=== PATIENT | female | born 1950 ===

== ENCOUNTER 2021-08-25 17:04 | Emergency (ER) | payer SELFPAY ==
[2021-08-25 19:34] LABS: HEMOGLOBIN 14.5 gm/dl (12.3-15.3); RED BLOOD COUNT 4.7 M/UL (4.00-5.10); WHITE BLOOD COUNT 10.2 K/UL (4.5-11.0)
[2021-08-25 19:57] LABS: BUN/CREATININE RATIO 25 (0-10)
[2021-08-25] MEDS ORDERED: COZAAR100 MG PO (22:53)
== END 2021-08-26 | disposition home or self-care (01) ==
LOC: ER1 17:04
PROVIDERS: Physician Assistant
DX: R07.89 Other chest pain (principal); I10 Essential (primary) hypertension; R51.9 Headache, unspecified; Z76.0 Encounter for issue of repeat prescription; Z88.8 Allergy status to other drugs, medicaments and biological substances; Z79.82 Long term (current) use of aspirin
CPT/HCPCS: 71045; 80053; 82550; 82553; 83874; 83880; 84484; 85025; 93005; 99283